=== PATIENT | male | born 1940 | race African-American/Black ===

== ENCOUNTER 2017-05-21 14:15 | Emergency (ER) | payer OTHER ==
[~2017-05-21] VITALS: Ht 175.3 cm; Wt 144.3 kg
[~2017-05-21 14:15] MED LIST: AMLODIPINE BESY10 MG PO; BYSTOLIC5 MG PO; KEFLEX500 MG PO; SIMVASTATIN20 MG PO; VALSARTAN-HCTZ1 EAC3 PO; VALTURNA 300-31 EACH PO
[2017-05-21 14:55] LABS: HEMATOCRIT 42.2 % (38.0-50.0); MCHC 36.5 G/DL (30.0-36.0); MCV 84.9 FL (86-99); MEAN PLAT.VOLUME 9.9 uM^3 (9.0-12.4); NRBC (%) 0.6 /100 WBC (0-0); PLATELET COUNT 241 K/uL (156-360); RBC DIS.WIDTH-CV 15.1 % (11.8-14.6); RBC DIS.WIDTH-SD 46.1 % (39-53); RED BLOOD COUNT 4.97 M/uL (4.00-5.50); WHITE BLOOD COUNT 3.5 K/uL (4.1-10.2)
[2017-05-21 15:07] LABS: CHLORIDE 101 mEq/L (99-109); POTASSIUM 3.8 mEq/L (3.7-5.4); SODIUM 138 mEq/L (136-147)
[2017-05-21 15:08] LABS: GLUCOSE 108 mg/dL (70-99)
[2017-05-21 15:10] LABS: ANION GAP 11 MEQ/L (2-14)
[2017-05-21 15:12] LABS: GFR ESTIMATE (CALCULATED) > 59 mL/min/
[2017-05-21 15:13] LABS: UREA NITROGEN (BUN) 16 mg/dL (9-23)
[2017-05-21 15:16] LABS: TROP-I INTERPRETATION NEGATIVE; TROPONIN-I 0.15 ng/mL (0.0-0.30)
[2017-05-21] MEDS ORDERED: PREDNISONE10 M1 PO (17:40)
[2017-05-21] MEDS ORDERED: VENTOLIN HFA18 GM IH (17:40)
[2017-05-21 17:58] VITALS: BP 143/84
== END 2017-05-21 18:00 | disposition home or self-care (01) ==
LOC: EME 14:15
DX: I11.0 Hypertensive heart disease with heart failure (principal); I50.9 Heart failure, unspecified; J44.9 Chronic obstructive pulmonary disease, unspecified; E78.5 Hyperlipidemia, unspecified; Z87.891 Personal history of nicotine dependence
CPT/HCPCS: 71020; 80048; 83735; 83880; 84484; 85027; 93005; 94640; 99281; 99284

== ENCOUNTER 2017-08-16 15:53 | Emergency (ER) | payer OTHER ==
[~2017-08-16] VITALS: Ht 176.5 cm; Wt 153.0 kg
[~2017-08-16 15:53] MED LIST changes: +PREDNISONE10 M1 PO; +VENTOLIN HFA18 GM IH
[2017-08-16 17:18] LABS: CHLORIDE 103 mEq/L (99-109); SODIUM 139 mEq/L (136-147)
[2017-08-16 17:20] LABS: GLUCOSE 106 mg/dL (70-99)
[2017-08-16 17:22] LABS: HEMATOCRIT 40.8 % (38.0-50.0); MCH 30.5 PG (29.0-34.0); MCHC 36.8 G/DL (30.0-36.0); MCV 82.9 FL (86-99); NRBC (%) 0.4 /100 WBC (0-0); PLATELET COUNT 261 K/uL (156-360); RBC DIS.WIDTH-CV 15.9 % (11.8-14.6); RBC DIS.WIDTH-SD 46.5 % (39-53); RED BLOOD COUNT 4.92 M/uL (4.00-5.50); WHITE BLOOD COUNT 4.6 K/uL (4.1-10.2)
[2017-08-16 17:24] LABS: GFR ESTIMATE (CALCULATED) > 59 mL/min/ (58.99-99999)
[2017-08-16 17:25] LABS: UREA NITROGEN (BUN) 12 mg/dL (9-23)
[2017-08-16 19:55] VITALS: BP 125/82
== END 2017-08-16 19:56 | disposition home or self-care (01) ==
LOC: EME 15:53 → RME 15:53
DX: R60.0 Localized edema (principal); S80.822A Blister (nonthermal), left lower leg, initial encounter; I11.0 Hypertensive heart disease with heart failure; I50.9 Heart failure, unspecified; E78.5 Hyperlipidemia, unspecified; Z87.891 Personal history of nicotine dependence
CPT/HCPCS: 71046; 80048; 85027; 99281; 99284

== ENCOUNTER 2017-09-22 10:55 | Inpatient (IN) | payer OTHER ==
[~2017-09-22] VITALS: Ht 175.3 cm; Wt 128.0 kg
[2017-09-22 11:43] LABS: CHLORIDE 101 mEq/L (99-109); POTASSIUM 3.8 mEq/L (3.7-5.4); SODIUM 138 mEq/L (136-147)
[2017-09-22 11:44] LABS: GLUCOSE 115 mg/dL (70-99)
[2017-09-22 11:48] LABS: CREATININE 1.1 mg/dL (0.6-1.3); GFR ESTIMATE (CALCULATED) > 59 mL/min/ (58.99-99999)
[2017-09-22 11:49] LABS: UREA NITROGEN (BUN) 25 mg/dL (9-23)
[2017-09-22 12:12] LABS: HEMATOCRIT 30.4 % (38.0-50.0); MCH 29.9 PG (29.0-34.0); MCHC 36.2 G/DL (30.0-36.0); MCV 82.6 FL (86-99); NRBC (%) 0.5 /100 WBC (0-0); PLATELET COUNT 230 K/uL (156-360); RBC DIS.WIDTH-CV 15.8 % (11.8-14.6); RBC DIS.WIDTH-SD 46.6 % (39-53); RED BLOOD COUNT 3.68 M/uL (4.00-5.50); WHITE BLOOD COUNT 6.1 K/uL (4.1-10.2)
[2017-09-22] MEDS ORDERED: ERGOCALCIF50000 UNIT PO (13:24)
[2017-09-22] MEDS ORDERED: FUROSEMIDE40 MG PO (13:24)
[2017-09-22 14:02] LABS: INTER. NORMALIZED RATIO 1.6
[2017-09-22 14:05] LABS: PTT 42.1 SEC (25-37)
[2017-09-22 17:30] VITALS: BP 112/68
[2017-09-22 18:18] LABS: HEMATOCRIT 29.9 % (38.0-50.0); HEMOGLOBIN 10.8 G/DL (12.5-16.6); MCV 83.3 FL (86-99)
[2017-09-22 20:00] VITALS: BP 100/69
[2017-09-23] VITALS (15 sets, daily range): BP systolic 60–110; BP diastolic 00–75
[2017-09-23 00:43] LABS: HEMATOCRIT 25.9 % (38.0-50.0); HEMOGLOBIN 9.8 G/DL (12.5-16.6)
[2017-09-23 05:32] LABS: HEMATOCRIT 26.3 % (38.0-50.0); HEMOGLOBIN 9.5 G/DL (12.5-16.6); MCH 29.8 PG (29.0-34.0); MCHC 36.1 G/DL (30.0-36.0); MCV 82.4 FL (86-99); NRBC (%) 0.6 /100 WBC (0-0); PLATELET COUNT 214 K/uL (156-360); RBC DIS.WIDTH-CV 15.6 % (11.8-14.6); RBC DIS.WIDTH-SD 46.1 % (39-53); RED BLOOD COUNT 3.19 M/uL (4.00-5.50); WHITE BLOOD COUNT 6.2 K/uL (4.1-10.2)
[2017-09-23 05:55] LABS: ALBUMIN 2.2 G/DL (3.2-4.8); ALKALINE PHOSPHATASE 70 IU/L (3-129); ALT (GPT) 18 IU/L (3-49); AST (GOT) 33 IU/L (2-34); TOTAL BILIRUBIN 3.7 MG/DL (0.0-1.0); TOTAL PROTEIN 5.1 G/DL (6.4-8.3)
[2017-09-23 05:56] LABS: ALBUMIN 2.2 G/DL (3.2-4.8); ALKALINE PHOSPHATASE 74 IU/L (3-129); ALT (GPT) 18 IU/L (3-49); AST (GOT) 33 IU/L (2-34); CHLORIDE 102 MEQ/L (99-109); GFR ESTIMATE (CALCULATED) > 59 mL/min/ (58.99-99999); GLUCOSE 118 mg/dL (70-99); POTASSIUM 4.2 MEQ/L (3.7-5.4); SODIUM 139 MEQ/L (136-147); TOTAL BILIRUBIN 3.9 MG/DL (0.0-1.0); UREA NITROGEN (BUN) 23 mg/dL (9-23)
[2017-09-23 11:03] LABS: HEMATOCRIT 25.8 % (38.0-50.0); HEMOGLOBIN 9.6 G/DL (12.5-16.6); MCV 83.5 FL (86-99)
[2017-09-23 15:03] LABS: INTER. NORMALIZED RATIO 1.5
[2017-09-23 15:06] LABS: PTT 42.3 SEC (25-37)
[2017-09-23 15:22] LABS: HEMATOCRIT 23.9 % (38.0-50.0); MCH 31.1 PG (29.0-34.0); MCHC 37.7 G/DL (30.0-36.0); MCV 82.7 FL (86-99); NRBC (%) 1.3 /100 WBC (0-0); PLATELET COUNT 202 K/uL (156-360); RBC DIS.WIDTH-CV 15.6 % (11.8-14.6); RBC DIS.WIDTH-SD 46.2 % (39-53); RED BLOOD COUNT 2.89 M/uL (4.00-5.50); WHITE BLOOD COUNT 5.5 K/uL (4.1-10.2)
[2017-09-23 15:24] LABS: CHLORIDE 105 mEq/L (99-109); POTASSIUM 3.9 mEq/L (3.7-5.4); SODIUM 137 mEq/L (136-147)
[2017-09-23 15:25] LABS: MAGNESIUM 1.7 mg/dL (1.3-2.7)
[2017-09-23 15:26] LABS: GLUCOSE 119 mg/dL (70-99)
[2017-09-23 15:30] LABS: CREATININE 0.8 mg/dL (0.6-1.3); GFR ESTIMATE (CALCULATED) > 59 mL/min/ (58.99-99999)
[2017-09-23 15:31] LABS: UREA NITROGEN (BUN) 21 mg/dL (9-23)
[2017-09-24 04:08] VITALS: BP 106/66
[2017-09-24 05:57] LABS: HEMATOCRIT 27.5 % (38.0-50.0); MCHC 36.4 G/DL (30.0-36.0); MCV 82.6 FL (86-99); NRBC (%) 1.9 /100 WBC (0-0); PLATELET COUNT 192 K/uL (156-360); RBC DIS.WIDTH-CV 15.4 % (11.8-14.6); RED BLOOD COUNT 3.33 M/uL (4.00-5.50); WHITE BLOOD COUNT 5.8 K/uL (4.1-10.2)
[2017-09-24 06:20] LABS: CHLORIDE 106 MEQ/L (99-109); CREATININE 0.8 MG/DL (0.6-1.3); GFR ESTIMATE (CALCULATED) > 59 mL/min/ (58.99-99999); GLUCOSE 99 mg/dL (70-99); MAGNESIUM 1.7 mg/dl (1.3-2.7); POTASSIUM 3.9 MEQ/L (3.7-5.4); SODIUM 139 MEQ/L (136-147); UREA NITROGEN (BUN) 16 mg/dL (9-23)
[2017-09-24 07:50] VITALS: BP 110/69
[2017-09-24 12:20] VITALS: BP 119/76
[2017-09-24 16:09] VITALS: BP 106/71
[2017-09-24 20:30] VITALS: BP 100/59
[2017-09-25] VITALS (7 sets, daily range): BP systolic 96–114; BP diastolic 54–76
[2017-09-25 05:38] LABS: HEMOGLOBIN 10.3 G/DL (12.5-16.6); MCH 30.9 PG (29.0-34.0); MCHC 36.8 G/DL (30.0-36.0); MCV 84.1 FL (86-99); NRBC (%) 1.8 /100 WBC (0-0); PLATELET COUNT 206 K/uL (156-360); RBC DIS.WIDTH-CV 15.9 % (11.8-14.6); RED BLOOD COUNT 3.33 M/uL (4.00-5.50); WHITE BLOOD COUNT 5.4 K/uL (4.1-10.2)
[2017-09-25 06:02] LABS: ALBUMIN 2.5 G/DL (3.2-4.8); ALKALINE PHOSPHATASE 71 IU/L (3-129); ALT (GPT) 18 IU/L (3-49); AST (GOT) 33 IU/L (2-34); CHLORIDE 106 MEQ/L (99-109); CREATININE 0.7 MG/DL (0.6-1.3); GFR ESTIMATE (CALCULATED) > 59 mL/min/ (58.99-99999); GLUCOSE 86 mg/dL (70-99); MAGNESIUM 1.7 mg/dl (1.3-2.7); POTASSIUM 3.8 MEQ/L (3.7-5.4); SODIUM 137 MEQ/L (136-147); TOTAL BILIRUBIN 3.8 MG/DL (0.0-1.0); TOTAL PROTEIN 5.5 G/DL (6.4-8.3); UREA NITROGEN (BUN) 12 mg/dL (9-23)
[2017-09-26 04:24] VITALS: BP 106/56
[2017-09-26 05:40] LABS: HEMATOCRIT 26.6 % (38.0-50.0); HEMOGLOBIN 9.8 G/DL (12.5-16.6); MCH 30.7 PG (29.0-34.0); MCHC 36.8 G/DL (30.0-36.0); MCV 83.4 FL (86-99); NRBC (%) 1.6 /100 WBC (0-0); PLATELET COUNT 215 K/uL (156-360); RBC DIS.WIDTH-CV 15.9 % (11.8-14.6); RBC DIS.WIDTH-SD 47.4 % (39-53); RED BLOOD COUNT 3.19 M/uL (4.00-5.50); WHITE BLOOD COUNT 4.9 K/uL (4.1-10.2)
[2017-09-26 05:51] LABS: INTER. NORMALIZED RATIO 1.5
[2017-09-26 05:54] LABS: PTT 40.1 SEC (25-37)
[2017-09-26 06:01] LABS: ALBUMIN 2.5 G/DL (3.2-4.8); ALKALINE PHOSPHATASE 74 IU/L (3-129); ALT (GPT) 17 IU/L (3-49); AST (GOT) 31 IU/L (2-34); CHLORIDE 105 MEQ/L (99-109); CREATININE 0.8 MG/DL (0.6-1.3); GFR ESTIMATE (CALCULATED) > 59 mL/min/ (58.99-99999); GLUCOSE 89 mg/dL (70-99); POTASSIUM 3.8 MEQ/L (3.7-5.4); SODIUM 138 MEQ/L (136-147); TOTAL BILIRUBIN 3.6 MG/DL (0.0-1.0); TOTAL PROTEIN 5.8 G/DL (6.4-8.3); UREA NITROGEN (BUN) 13 mg/dL (9-23)
[2017-09-26] MEDS ORDERED: PANTOPRAZOLE SO40 MG PO (08:13)
[2017-09-26 08:19] VITALS: BP 94/53
[2017-09-26 11:12] VITALS: BP 97/60
== END 2017-09-26 15:18 | disposition home or self-care (01) | DRG 378 ==
LOC: EME 10:55 → EDOF 13:56 → 4EAST 13:56 → ENRESERV 14:01 → EDOF 14:10 → ENRESERV 14:38 → 4EAST 16:20 → ENPENDDIS 09-26 → 4EAST 09-26 15:18
PROVIDERS: Emergency Medicine; Hospitalist; Internal Medicine; Internal Medicine Gastroenterology
PROC: 30233N1 Transfusion of Nonautologous Red Blood Cells into Peripheral Vein, Percutaneous Approach (ICD-10-PCS; principal; 2017-09-23)
DX: K92.1 Melena (principal); L97.221 Non-pressure chronic ulcer of left calf limited to breakdown of skin; D68.4 Acquired coagulation factor deficiency; D62 Acute posthemorrhagic anemia; Z68.41 Body mass index [BMI] 40.0-44.9, adult; I50.22 Chronic systolic (congestive) heart failure; R17 Unspecified jaundice; I11.0 Hypertensive heart disease with heart failure; E78.5 Hyperlipidemia, unspecified; E66.01 Morbid (severe) obesity due to excess calories; I87.2 Venous insufficiency (chronic) (peripheral); I87.8 Other specified disorders of veins; I89.0 Lymphedema, not elsewhere classified; I95.9 Hypotension, unspecified; Z87.891 Personal history of nicotine dependence; Z23 Encounter for immunization; Z79.51 Long term (current) use of inhaled steroids; Z82.49 Family history of ischemic heart disease and other diseases of the circulatory system
CPT/HCPCS: 76705; 80048; 80048 91; 80053; 80076; 83735; 85014; 85018; 85027; 85610; 85730; 86850; 86900; 86901; 86920; 90686; 93005; 93306; 99202; 99281; 99285; A6260; C9113; J3430; J7030; J7040; P9016; P9045; P9047

== ENCOUNTER 2017-10-10 11:43 | Emergency (ER) | payer OTHER ==
[~2017-10-10] VITALS: Ht 175.3 cm; Wt 153.2 kg
[~2017-10-10 11:43] MED LIST changes: +ERGOCALCIF50000 UNIT PO; +FUROSEMIDE40 MG PO; +PANTOPRAZOLE SO40 MG PO
[2017-10-10 12:47] LABS: HEMATOCRIT 27.6 % (38.0-50.0); HEMOGLOBIN 10.1 G/DL (12.5-16.6); MCHC 36.6 G/DL (30.0-36.0); MCV 81.9 FL (86-99); PLATELET COUNT 275 K/uL (156-360); RBC DIS.WIDTH-CV 14.8 % (11.8-14.6); RBC DIS.WIDTH-SD 43.3 % (39-53); RED BLOOD COUNT 3.37 M/uL (4.00-5.50)
[2017-10-10 12:53] LABS: CHLORIDE 100 mEq/L (99-109); POTASSIUM 4.3 mEq/L (3.7-5.4); SODIUM 132 mEq/L (136-147)
[2017-10-10 12:55] LABS: GLUCOSE 112 mg/dL (70-99)
[2017-10-10 12:58] LABS: GFR ESTIMATE (CALCULATED) > 59 mL/min/ (58.99-99999)
[2017-10-10 12:59] LABS: UREA NITROGEN (BUN) 11 mg/dL (9-23)
[2017-10-10 15:41] LABS: TROP-I INTERPRETATION NEGATIVE; TROPONIN-I 0.13 ng/mL (0.0-0.30)
[2017-10-10 15:59] LABS: APPEARANCE SL.HAZY ((CLEAR)); BILIRUBIN NEGATIVE; BLOOD SMALL; COLOR AMBER ((YELLOW)); GLUCOSE (STRIP) NEGATIVE; KETONES NEGATIVE; LEUKOCYTES SMALL; NITRITE NEGATIVE; PROTEIN (STRIP) 100; SPECIFIC GRAVITY 1.012 (1.000-1.030)
[2017-10-10 16:08] LABS: BACTERIA RARE /HPF; CALCIUM OXALATE CRYSTALS 2+ /HPF; EPITHELIAL CELLS RARE /HPF; MUCUS TRACE /LPF; RED BLOOD CELLS 0-5 /HPF (0-5); UCUL ADDED? YES; WHITE BLOOD CELLS 15-20 /HPF (0-5)
[2017-10-10] MEDS ORDERED: ELIQUIS5 M1 PO (17:06)
[2017-10-10 17:10] VITALS: BP 113/78
[2017-10-10] MEDS ORDERED: LORTAB 5-325 M1 EACH PO (17:19)
== END 2017-10-10 17:40 | disposition home or self-care (01) ==
LOC: EME 11:43
PROVIDERS: Physician Assistant Medical
DX: I48.91 Unspecified atrial fibrillation (principal); I48.92 Unspecified atrial flutter; R06.02 Shortness of breath; I11.0 Hypertensive heart disease with heart failure; I50.9 Heart failure, unspecified; E78.5 Hyperlipidemia, unspecified; Z87.891 Personal history of nicotine dependence
CPT/HCPCS: 71046; 71275; 80048; 81003; 83880; 84484; 85027; 87077; 87086; 87186; 93005; 99281; 99284

== ENCOUNTER 2017-10-19 10:32 | Inpatient (IN) | payer OTHER ==
[~2017-10-19] VITALS: Ht 175.3 cm; Wt 116.0 kg
[~2017-10-19 10:32] MED LIST changes: +ELIQUIS5 M1 PO; +LORTAB 5-325 M1 EACH PO
[2017-10-19 11:50] LABS: BASE EXCESS -2.5 mEq/L (-3 to +3); BICARBONATE 21.4 mEq/L (22-26); CARBOXY HGB 2.8 % (0-5); PCO2 33 mm Hg (35-45); PO2 66 mm Hg (80-100); pH 7.42 (7.35-7.45)
[2017-10-19 11:51] LABS: COMMENTS - BLOOD GASES A+C+; DEVICE RA; SITE RR; TOTAL RESP RATE 23 resp/min
[2017-10-19 12:00] LABS: BASOPHIL (%) 0.1 % (0-1); EOSINOPHIL (%) 0 % (0-5); HEMATOCRIT 28.1 % (38.0-50.0); HEMOGLOBIN 10.3 G/DL (12.5-16.6); IMMATURE GRANULOCYTE (%) 0.6 % (0.0-0.7); LYMPHOCYTE (%) 3.8 % (15-42); LYMPHOCYTE COUNT 0.5 K/uL (1.0-2.8); MCH 29.1 PG (29.0-34.0); MCHC 36.7 G/DL (30.0-36.0); MCV 79.4 FL (86-99); MONOCYTE (%) 9.1 % (3-12); MONOCYTE COUNT 1.1 K/uL (0-0.8); NEUTROPHIL (%) 86.4 % (45-76); NEUTROPHIL COUNT 10.6 K/uL (1.8-6.4); NRBC (%) 5.5 /100 WBC (0-0); PLATELET COUNT 286 K/uL (156-360); RBC DIS.WIDTH-CV 14.8 % (11.8-14.6); RBC DIS.WIDTH-SD 42.1 % (39-53); RED BLOOD COUNT 3.54 M/uL (4.00-5.50); WHITE BLOOD COUNT 12.3 K/uL (4.1-10.2)
[2017-10-19 12:19] LABS: INTER. NORMALIZED RATIO 8.7
[2017-10-19 12:21] LABS: ALBUMIN 2.7 g/dL (3.2-4.8); CHLORIDE 97 mEq/L (99-109); POTASSIUM 5.8 mEq/L (3.7-5.4); SODIUM 128 mEq/L (136-147)
[2017-10-19 12:22] LABS: MAGNESIUM 2.4 mg/dL (1.3-2.7); TROP-I INTERPRETATION NEGATIVE; TROPONIN-I 0.12 ng/mL (0.0-0.30)
[2017-10-19 12:23] LABS: GLUCOSE 130 mg/dL (70-99)
[2017-10-19 12:24] LABS: TOTAL PROTEIN 7.2 g/dL (6.4-8.3)
[2017-10-19 12:25] LABS: TOTAL BILIRUBIN 6.5 mg/dL (0.0-1.0)
[2017-10-19 12:27] LABS: ALKALINE PHOSPHATASE 125 IU/L (3-129); CREATININE 1.6 mg/dL (0.6-1.3); GFR ESTIMATE (CALCULATED) 55 mL/min/ (58.99-99999)
[2017-10-19 12:28] LABS: UREA NITROGEN (BUN) 28 mg/dL (9-23)
[2017-10-19 12:29] LABS: AST (GOT) 58 IU/L (2-34)
[2017-10-19 12:30] LABS: ALT (GPT) 22 IU/L (3-49)
[2017-10-19 13:07] LABS: APPEARANCE CLOUDY ((CLEAR)); BILIRUBIN SMALL; BLOOD MODERATE; COLOR AMBER ((YELLOW)); GLUCOSE (STRIP) NEGATIVE; KETONES NEGATIVE; LEUKOCYTES NEGATIVE; NITRITE NEGATIVE; PROTEIN (STRIP) 100; SPECIFIC GRAVITY 1.026 (1.000-1.030)
[2017-10-19] MEDS ORDERED: PROTONIX40 MG PO (13:12)
[2017-10-19] MEDS ORDERED: ELIQUIS5 MG PO (13:12)
[2017-10-19] MEDS ORDERED: CEPHALEXIN500 MG PO (13:13)
[2017-10-19] MEDS ORDERED: FLOVENT 11120 INHALA IH (13:13)
[2017-10-19 13:26] LABS: COARSE GRANULAR CASTS 0-5 /LPF; EPITHELIAL CELLS NONE SEEN /HPF; MUCUS NONE SEEN /LPF; RED BLOOD CELLS RARE /HPF (0-5); UCUL ADDED? NO; WHITE BLOOD CELLS NONE SEEN /HPF (0-5)
[2017-10-19 13:27] LABS: BACTERIA 1+ /HPF
[2017-10-19 18:39] LABS: CHLORIDE 98 mEq/L (99-109); POTASSIUM 4.6 mEq/L (3.7-5.4); SODIUM 129 mEq/L (136-147)
[2017-10-19 18:41] LABS: GLUCOSE 122 mg/dL (70-99)
[2017-10-19 18:44] LABS: CREATININE 1.5 mg/dL (0.6-1.3); GFR ESTIMATE (CALCULATED) 59 mL/min/ (58.99-99999)
[2017-10-19 18:45] LABS: UREA NITROGEN (BUN) 27 mg/dL (9-23)
[2017-10-19 19:33] VITALS: BP 92/61
[2017-10-19 21:11] VITALS: BP 92/60
[2017-10-19 22:37] VITALS: BP 94/60
[2017-10-20] VITALS (8 sets, daily range): BP systolic 80–100; BP diastolic 49–59
[2017-10-20 06:08] LABS: BASOPHIL (%) 0.3 % (0-1); EOSINOPHIL (%) 0.1 % (0-5); HEMATOCRIT 27.2 % (38.0-50.0); HEMOGLOBIN 9.8 G/DL (12.5-16.6); IMMATURE GRANULOCYTE (%) 0.6 % (0.0-0.7); LYMPHOCYTE (%) 4.1 % (15-42); LYMPHOCYTE COUNT 0.5 K/uL (1.0-2.8); MCH 28.7 PG (29.0-34.0); MCV 79.5 FL (86-99); MONOCYTE (%) 11.6 % (3-12); MONOCYTE COUNT 1.4 K/uL (0-0.8); NEUTROPHIL (%) 83.3 % (45-76); NRBC (%) 5.9 /100 WBC (0-0); PLATELET COUNT 268 K/uL (156-360); RBC DIS.WIDTH-SD 42.8 % (39-53); RED BLOOD COUNT 3.42 M/uL (4.00-5.50)
[2017-10-20 06:32] LABS: ALBUMIN 2.6 G/DL (3.2-4.8); ALKALINE PHOSPHATASE 96 IU/L (3-129); ALT (GPT) 18 IU/L (3-49); AST (GOT) 40 IU/L (2-34); CHLORIDE 97 MEQ/L (99-109); CREATININE 1.4 MG/DL (0.6-1.3); GFR ESTIMATE (CALCULATED) > 59 mL/min/ (58.99-99999); GLUCOSE 120 mg/dL (70-99); POTASSIUM 4.4 MEQ/L (3.7-5.4); SODIUM 129 MEQ/L (136-147); TOTAL BILIRUBIN 6.4 MG/DL (0.0-1.0); TOTAL PROTEIN 6.5 G/DL (6.4-8.3); UREA NITROGEN (BUN) 26 mg/dL (9-23)
[2017-10-20 14:31] LABS: INTER. NORMALIZED RATIO 5.1
[2017-10-21] VITALS (11 sets, daily range): BP systolic 85–109; BP diastolic 52–73
[2017-10-21 05:51] LABS: CHLORIDE 99 MEQ/L (99-109); CREATININE 1.4 MG/DL (0.6-1.3); GFR ESTIMATE (CALCULATED) > 59 mL/min/ (58.99-99999); GLUCOSE 117 mg/dL (70-99); POTASSIUM 3.9 MEQ/L (3.7-5.4); SODIUM 131 MEQ/L (136-147); UREA NITROGEN (BUN) 28 mg/dL (9-23)
[2017-10-21 09:10] LABS: INTER. NORMALIZED RATIO 3.9
[2017-10-22] VITALS (15 sets, daily range): BP systolic 72–104; BP diastolic 48–75
[2017-10-22 01:11] LABS: APPEARANCE SL.HAZY ((CLEAR)); BILIRUBIN NEGATIVE; BLOOD LARGE; COLOR YELLOW ((YELLOW)); GLUCOSE (STRIP) NEGATIVE; KETONES NEGATIVE; LEUKOCYTES MODERATE; NITRITE NEGATIVE; PROTEIN (STRIP) NEGATIVE; SPECIFIC GRAVITY 1.005 (1.000-1.030); UROBILINOGEN 0.2 MG/DL (0.2-1.0)
[2017-10-22 01:21] LABS: BACTERIA RARE /HPF; EPITHELIAL CELLS RARE /HPF; HYALINE CASTS 0-5 /LPF; MUCUS TRACE /LPF; RED BLOOD CELLS TNTC /HPF (0-5); UCUL ADDED? YES
[2017-10-22 05:18] LABS: INTER. NORMALIZED RATIO 3.1
[2017-10-22 05:45] LABS: ALBUMIN 2.3 G/DL (3.2-4.8); ALKALINE PHOSPHATASE 103 IU/L (3-129); ALT (GPT) 16 IU/L (3-49); AST (GOT) 37 IU/L (2-34); CHLORIDE 98 MEQ/L (99-109); CREATININE 1.4 MG/DL (0.6-1.3); GFR ESTIMATE (CALCULATED) > 59 mL/min/ (58.99-99999); GLUCOSE 108 mg/dL (70-99); MAGNESIUM 2.5 mg/dl (1.3-2.7); PHOSPHORUS 3.2 mg/dL (2.5-4.9); POTASSIUM 3.6 MEQ/L (3.7-5.4); SODIUM 133 MEQ/L (136-147); TOTAL BILIRUBIN 6.8 MG/DL (0.0-1.0); TOTAL PROTEIN 6.1 G/DL (6.4-8.3); UREA NITROGEN (BUN) 28 mg/dL (9-23)
[2017-10-22 20:18] LABS: CHLORIDE 100 MEQ/L (99-109); POTASSIUM 3.3 MEQ/L (3.7-5.4); SODIUM 132 MEQ/L (136-147)
[2017-10-22 20:23] LABS: CREATININE 1.4 MG/DL (0.6-1.3); GFR ESTIMATE (CALCULATED) > 59 mL/min/ (58.99-99999); GLUCOSE 110 mg/dL (70-99); UREA NITROGEN (BUN) 27 mg/dL (9-23)
[2017-10-23] VITALS (17 sets, daily range): BP systolic 83–128; BP diastolic 51–74
[2017-10-23 07:20] LABS: CHLORIDE 98 MEQ/L (99-109); CREATININE 1.4 MG/DL (0.6-1.3); GFR ESTIMATE (CALCULATED) > 59 mL/min/ (58.99-99999); GLUCOSE 111 mg/dL (70-99); POTASSIUM 3.6 MEQ/L (3.7-5.4); SODIUM 131 MEQ/L (136-147); UREA NITROGEN (BUN) 26 mg/dL (9-23)
[2017-10-23 12:36] LABS: HEMATOCRIT 28.9 % (38.0-50.0); HEMOGLOBIN 10.4 G/DL (12.5-16.6); MCV 77.7 FL (86-99); NRBC (%) 5.4 /100 WBC (0-0); PLATELET COUNT 244 K/uL (156-360); RBC DIS.WIDTH-CV 15.4 % (11.8-14.6); RBC DIS.WIDTH-SD 41.8 % (39-53); RED BLOOD COUNT 3.72 M/uL (4.00-5.50); WHITE BLOOD COUNT 7.9 K/uL (4.1-10.2)
[2017-10-23 17:28] LABS: CHLORIDE 100 MEQ/L (99-109); CREATININE 1.4 MG/DL (0.6-1.3); GFR ESTIMATE (CALCULATED) > 59 mL/min/ (58.99-99999); GLUCOSE 120 mg/dL (70-99); POTASSIUM 3.1 MEQ/L (3.7-5.4); SODIUM 137 MEQ/L (136-147); UREA NITROGEN (BUN) 26 mg/dL (9-23)
[2017-10-24] VITALS (18 sets, daily range): BP systolic 86–132; BP diastolic 51–89
[2017-10-24 00:38] LABS: CHLORIDE 101 mEq/L (99-109); POTASSIUM 3.1 mEq/L (3.7-5.4); SODIUM 138 mEq/L (136-147)
[2017-10-24 00:40] LABS: GLUCOSE 132 mg/dL (70-99)
[2017-10-24 00:44] LABS: CREATININE 1.3 mg/dL (0.6-1.3); GFR ESTIMATE (CALCULATED) > 59 mL/min/ (58.99-99999)
[2017-10-24 00:45] LABS: UREA NITROGEN (BUN) 27 mg/dL (9-23)
[2017-10-24 00:46] LABS: PHOSPHORUS 2.1 mg/dL (2.5-4.9)
[2017-10-24 07:48] LABS: CHLORIDE 98 MEQ/L (99-109); CREATININE 1.3 MG/DL (0.6-1.3); GFR ESTIMATE (CALCULATED) > 59 mL/min/ (58.99-99999); GLUCOSE 122 mg/dL (70-99); POTASSIUM 3.5 MEQ/L (3.7-5.4); SODIUM 139 MEQ/L (136-147); UREA NITROGEN (BUN) 25 mg/dL (9-23)
[2017-10-24 11:23] LABS: INTER. NORMALIZED RATIO 2.3
[2017-10-24 16:41] LABS: CHLORIDE 96 MEQ/L (99-109); CREATININE 1.3 MG/DL (0.6-1.3); GFR ESTIMATE (CALCULATED) > 59 mL/min/ (58.99-99999); GLUCOSE 160 mg/dL (70-99); POTASSIUM 3.3 MEQ/L (3.7-5.4); SODIUM 138 MEQ/L (136-147); UREA NITROGEN (BUN) 23 mg/dL (9-23)
[2017-10-25] VITALS (21 sets, daily range): BP systolic 80–129; BP diastolic 50–91
[2017-10-25 04:49] LABS: HEMATOCRIT 29.4 % (38.0-50.0); HEMOGLOBIN 10.9 G/DL (12.5-16.6); MCH 28.6 PG (29.0-34.0); MCHC 37.1 G/DL (30.0-36.0); MCV 77.2 FL (86-99); NRBC (%) 3.7 /100 WBC (0-0); PLATELET COUNT 267 K/uL (156-360); RBC DIS.WIDTH-CV 15.5 % (11.8-14.6); RBC DIS.WIDTH-SD 41.6 % (39-53); RED BLOOD COUNT 3.81 M/uL (4.00-5.50); WHITE BLOOD COUNT 7.6 K/uL (4.1-10.2)
[2017-10-25 04:55] LABS: INTER. NORMALIZED RATIO 2.2
[2017-10-25 04:58] LABS: PTT 55.2 SEC (25-37)
[2017-10-25 05:00] LABS: ALBUMIN 2.5 g/dL (3.2-4.8); CHLORIDE 98 mEq/L (99-109); POTASSIUM 3.7 mEq/L (3.7-5.4); SODIUM 142 mEq/L (136-147)
[2017-10-25 05:02] LABS: GLUCOSE 132 mg/dL (70-99); TOTAL PROTEIN 6.8 g/dL (6.4-8.3)
[2017-10-25 05:04] LABS: TOTAL BILIRUBIN 6.1 mg/dL (0.0-1.0)
[2017-10-25 05:06] LABS: ALKALINE PHOSPHATASE 142 IU/L (3-129); CREATININE 1.3 mg/dL (0.6-1.3); GFR ESTIMATE (CALCULATED) > 59 mL/min/ (58.99-99999)
[2017-10-25 05:07] LABS: AST (GOT) 76 IU/L (2-34); UREA NITROGEN (BUN) 23 mg/dL (9-23)
[2017-10-25 05:09] LABS: ALT (GPT) 30 IU/L (3-49)
[2017-10-25 14:14] LABS: BASE EXCESS 15.2 mEq/L (-3 to +3); BICARBONATE 38.4 mEq/L (22-26); CARBOXY HGB 3.1 % (0-5); METHEMOGLOBIN 1.4 % (0-1.5); PCO2 40 mm Hg (35-45); PO2 55 mm Hg (80-100); pH 7.59 (7.35-7.45)
[2017-10-25 14:16] LABS: COMMENTS - BLOOD GASES +C; FI02 21 %; SITE LR +A; TOTAL RESP RATE 24 resp/min
[2017-10-26] VITALS (15 sets, daily range): BP systolic 81–131; BP diastolic 49–73
[2017-10-26 05:29] LABS: CHLORIDE 100 mEq/L (99-109); POTASSIUM 3.5 mEq/L (3.7-5.4); SODIUM 144 mEq/L (136-147)
[2017-10-26 05:30] LABS: GLUCOSE 110 mg/dL (70-99)
[2017-10-26 05:34] LABS: CREATININE 1.1 mg/dL (0.6-1.3); GFR ESTIMATE (CALCULATED) > 59 mL/min/ (58.99-99999)
[2017-10-26 05:35] LABS: UREA NITROGEN (BUN) 21 mg/dL (9-23)
[2017-10-26 06:45] LABS: IRON 38 MCG/DL (35-150); TRANSFERRIN (TIBC) 185.5 mg/dL (215-380); TRANSFERRIN SATUR. 20 % (20-55)
[2017-10-27 00:15] VITALS: BP 96/62
[2017-10-27 00:32] LABS: ALBUMIN 2.3 g/dL (3.2-4.8); CHLORIDE 99 mEq/L (99-109); POTASSIUM 3.3 mEq/L (3.7-5.4); SODIUM 143 mEq/L (136-147)
[2017-10-27 00:33] LABS: MAGNESIUM 2.2 mg/dL (1.3-2.7)
[2017-10-27 00:35] LABS: GLUCOSE 126 mg/dL (70-99); TOTAL PROTEIN 6.7 g/dL (6.4-8.3)
[2017-10-27 00:37] LABS: TOTAL BILIRUBIN 5.5 mg/dL (0.0-1.0)
[2017-10-27 00:39] LABS: GFR ESTIMATE (CALCULATED) > 59 mL/min/ (58.99-99999)
[2017-10-27 00:40] LABS: AST (GOT) 87 IU/L (2-34)
[2017-10-27 00:41] LABS: TROP-I INTERPRETATION INDETERMINATE; TROPONIN-I 0.43 ng/mL (0.0-0.30)
[2017-10-27 00:50] LABS: ALKALINE PHOSPHATASE 134 IU/L (3-129)
[2017-10-27 00:51] LABS: UREA NITROGEN (BUN) 19 mg/dL (9-23)
[2017-10-27 00:52] LABS: DIGOXIN 0.7 ng/mL (0.8-2.0)
[2017-10-27 00:53] LABS: ALT (GPT) 34 IU/L (3-49)
[2017-10-27 04:15] VITALS: BP 102/63
[2017-10-27 05:51] LABS: HEMATOCRIT 30.1 % (38.0-50.0); HEMOGLOBIN 10.7 G/DL (12.5-16.6); MCH 28.3 PG (29.0-34.0); MCHC 35.5 G/DL (30.0-36.0); MCV 79.6 FL (86-99); NRBC (%) 2.2 /100 WBC (0-0); PLATELET COUNT 262 K/uL (156-360); RBC DIS.WIDTH-CV 16.4 % (11.8-14.6); RBC DIS.WIDTH-SD 44.8 % (39-53); RED BLOOD COUNT 3.78 M/uL (4.00-5.50); WHITE BLOOD COUNT 7.2 K/uL (4.1-10.2)
[2017-10-27 06:20] LABS: BASOPHIL (%) 0.4 % (0-1); EOSINOPHIL (%) 1.1 % (0-5); EOSINOPHIL COUNT 0.1 K/uL (0-0.3); IMMATURE GRANULOCYTE (%) 0.6 % (0.0-0.7); LYMPHOCYTE COUNT 0.9 K/uL (1.0-2.8); MONOCYTE (%) 9.6 % (3-12); MONOCYTE COUNT 0.7 K/uL (0-0.8); NEUTROPHIL (%) 75.3 % (45-76); NEUTROPHIL COUNT 5.4 K/uL (1.8-6.4)
[2017-10-27 06:27] LABS: CHLORIDE 99 MEQ/L (99-109); GFR ESTIMATE (CALCULATED) > 59 mL/min/ (58.99-99999); GLUCOSE 111 mg/dL (70-99); POTASSIUM 3.4 MEQ/L (3.7-5.4); SODIUM 142 MEQ/L (136-147); UREA NITROGEN (BUN) 19 mg/dL (9-23)
[2017-10-27 06:50] VITALS: BP 103/58
[2017-10-27 09:41] LABS: BASE EXCESS 15.8 mEq/L (-3 to +3); BICARBONATE 40.2 mEq/L (22-26); CARBOXY HGB 2.7 % (0-5); METHEMOGLOBIN 1.6 % (0-1.5); pH 7.54 (7.35-7.45)
[2017-10-27 09:42] LABS: PCO2 47 mm Hg (35-45); PO2 76 mm Hg (80-100)
[2017-10-27 09:43] LABS: COMMENTS - BLOOD GASES A+C+; DEVICE NC; O2 FLOW 1 L/MIN; SITE LR
[2017-10-27 10:56] VITALS: BP 94/53
[2017-10-27 15:20] VITALS: BP 99/57
[2017-10-27 19:47] VITALS: BP 109/66
[2017-10-28] VITALS: BP 116/58
[2017-10-28 04:07] VITALS: BP 117/65
[2017-10-28 05:38] LABS: HEMATOCRIT 30.8 % (38.0-50.0); HEMOGLOBIN 10.7 G/DL (12.5-16.6); MCH 27.9 PG (29.0-34.0); MCHC 34.7 G/DL (30.0-36.0); MCV 80.4 FL (86-99); NRBC (%) 1.5 /100 WBC (0-0); PLATELET COUNT 290 K/uL (156-360); RBC DIS.WIDTH-CV 17.1 % (11.8-14.6); RBC DIS.WIDTH-SD 46.7 % (39-53); RED BLOOD COUNT 3.83 M/uL (4.00-5.50); WHITE BLOOD COUNT 7.3 K/uL (4.1-10.2)
[2017-10-28 05:48] LABS: INTER. NORMALIZED RATIO 1.7
[2017-10-28 06:08] LABS: ALBUMIN 2.3 G/DL (3.2-4.8); ALKALINE PHOSPHATASE 125 IU/L (3-129); CHLORIDE 102 MEQ/L (99-109); CREATININE 0.9 MG/DL (0.6-1.3); GFR ESTIMATE (CALCULATED) > 59 mL/min/ (58.99-99999); GLUCOSE 108 mg/dL (70-99); POTASSIUM 3.7 MEQ/L (3.7-5.4); SODIUM 144 MEQ/L (136-147); TOTAL PROTEIN 6.4 G/DL (6.4-8.3); UREA NITROGEN (BUN) 17 mg/dL (9-23)
[2017-10-28 06:18] LABS: ALT (GPT) 31 IU/L (3-49); AST (GOT) 74 IU/L (2-34); BASOPHIL (%) 0.4 % (0-1); EOSINOPHIL (%) 0.7 % (0-5); EOSINOPHIL COUNT 0.1 K/uL (0-0.3); IMMATURE GRANULOCYTE (%) 0.7 % (0.0-0.7); LYMPHOCYTE (%) 16.1 % (15-42); LYMPHOCYTE COUNT 1.2 K/uL (1.0-2.8); MONOCYTE (%) 8.7 % (3-12); MONOCYTE COUNT 0.6 K/uL (0-0.8); NEUTROPHIL (%) 73.4 % (45-76); NEUTROPHIL COUNT 5.4 K/uL (1.8-6.4); TOTAL BILIRUBIN 5.3 MG/DL (0.0-1.0)
[2017-10-28 06:57] VITALS: BP 106/54
[2017-10-28 11:20] VITALS: BP 119/76
[2017-10-28 15:37] VITALS: BP 110/71
[2017-10-28 19:57] VITALS: BP 102/62
[2017-10-29] VITALS (7 sets, daily range): BP systolic 90–111; BP diastolic 55–76
[2017-10-29 07:28] LABS: INTER. NORMALIZED RATIO 1.7
[2017-10-29 07:46] LABS: BASOPHIL (%) 0.5 % (0-1); EOSINOPHIL (%) 0.5 % (0-5); HEMATOCRIT 31.6 % (38.0-50.0); HEMOGLOBIN 10.8 G/DL (12.5-16.6); IMMATURE GRANULOCYTE (%) 0.5 % (0.0-0.7); LYMPHOCYTE (%) 13.9 % (15-42); LYMPHOCYTE COUNT 1.1 K/uL (1.0-2.8); MCHC 34.2 G/DL (30.0-36.0); MCV 81.9 FL (86-99); MONOCYTE (%) 8.4 % (3-12); MONOCYTE COUNT 0.6 K/uL (0-0.8); NEUTROPHIL (%) 76.2 % (45-76); NEUTROPHIL COUNT 5.8 K/uL (1.8-6.4); NRBC (%) 2.1 /100 WBC (0-0); PLATELET COUNT 313 K/uL (156-360); RBC DIS.WIDTH-CV 17.4 % (11.8-14.6); RBC DIS.WIDTH-SD 48.8 % (39-53); RED BLOOD COUNT 3.86 M/uL (4.00-5.50); WHITE BLOOD COUNT 7.6 K/uL (4.1-10.2)
[2017-10-29 07:51] LABS: ALBUMIN 2.4 G/DL (3.2-4.8); ALKALINE PHOSPHATASE 134 IU/L (3-129); ALT (GPT) 40 IU/L (3-49); AST (GOT) 93 IU/L (2-34); CHLORIDE 102 MEQ/L (99-109); CREATININE 0.9 MG/DL (0.6-1.3); GFR ESTIMATE (CALCULATED) > 59 mL/min/ (58.99-99999); GLUCOSE 111 mg/dL (70-99); POTASSIUM 3.2 MEQ/L (3.7-5.4); SODIUM 147 MEQ/L (136-147); TOTAL BILIRUBIN 5.3 MG/DL (0.0-1.0); TOTAL PROTEIN 6.6 G/DL (6.4-8.3); UREA NITROGEN (BUN) 16 mg/dL (9-23)
[2017-10-30 06:21] LABS: BASOPHIL (%) 0.7 % (0-1); BASOPHIL COUNT 0.1 K/uL (0-0.1); EOSINOPHIL (%) 0.7 % (0-5); EOSINOPHIL COUNT 0.1 K/uL (0-0.3); HEMATOCRIT 32.4 % (38.0-50.0); IMMATURE GRANULOCYTE (%) 0.6 % (0.0-0.7); LYMPHOCYTE (%) 12.7 % (15-42); MCH 28.1 PG (29.0-34.0); MCV 82.9 FL (86-99); MONOCYTE (%) 7.6 % (3-12); MONOCYTE COUNT 0.6 K/uL (0-0.8); NEUTROPHIL (%) 77.7 % (45-76); NEUTROPHIL COUNT 6.3 K/uL (1.8-6.4); NRBC (%) 3.8 /100 WBC (0-0); PLATELET COUNT 283 K/uL (156-360); RBC DIS.WIDTH-CV 18.3 % (11.8-14.6); RBC DIS.WIDTH-SD 51.4 % (39-53); RED BLOOD COUNT 3.91 M/uL (4.00-5.50); WHITE BLOOD COUNT 8.1 K/uL (4.1-10.2)
[2017-10-30 06:40] LABS: INTER. NORMALIZED RATIO 1.6
[2017-10-30 06:45] LABS: ALBUMIN 2.2 G/DL (3.2-4.8); ALKALINE PHOSPHATASE 117 IU/L (3-129); ALT (GPT) 34 IU/L (3-49); AST (GOT) 72 IU/L (2-34); CHLORIDE 105 MEQ/L (99-109); CREATININE 0.8 MG/DL (0.6-1.3); DIRECT BILIRUBIN 2.8 mg/dL (0.0-0.3); GFR ESTIMATE (CALCULATED) > 59 mL/min/ (58.99-99999); GLUCOSE 91 mg/dL (70-99); POTASSIUM 3.7 MEQ/L (3.7-5.4); SODIUM 149 MEQ/L (136-147); TOTAL PROTEIN 6.5 G/DL (6.4-8.3); UREA NITROGEN (BUN) 17 mg/dL (9-23)
[2017-10-30 08:11] VITALS: BP 113/56
[2017-10-30 16:04] VITALS: BP 112/55
[2017-10-30 20:06] LABS: BASOPHIL (%) 0.6 % (0-1); EOSINOPHIL (%) 0.9 % (0-5); EOSINOPHIL COUNT 0.1 K/uL (0-0.3); HEMATOCRIT 32.5 % (38.0-50.0); HEMOGLOBIN 10.8 G/DL (12.5-16.6); IMMATURE GRANULOCYTE (%) 0.6 % (0.0-0.7); LYMPHOCYTE (%) 16.9 % (15-42); LYMPHOCYTE COUNT 1.2 K/uL (1.0-2.8); MCH 27.8 PG (29.0-34.0); MCHC 33.2 G/DL (30.0-36.0); MCV 83.8 FL (86-99); MONOCYTE (%) 8.4 % (3-12); MONOCYTE COUNT 0.6 K/uL (0-0.8); NEUTROPHIL (%) 72.6 % (45-76); NRBC (%) 4.7 /100 WBC (0-0); PLATELET COUNT 311 K/uL (156-360); RBC DIS.WIDTH-CV 18.4 % (11.8-14.6); RBC DIS.WIDTH-SD 52.3 % (39-53); RED BLOOD COUNT 3.88 M/uL (4.00-5.50); WHITE BLOOD COUNT 6.9 K/uL (4.1-10.2)
[2017-10-30 20:44] LABS: ALBUMIN 2.4 G/DL (3.2-4.8); ALKALINE PHOSPHATASE 119 IU/L (3-129); ALT (GPT) 31 IU/L (3-49); AST (GOT) 63 IU/L (2-34); CHLORIDE 105 MEQ/L (99-109); CREATININE 0.8 MG/DL (0.6-1.3); GFR ESTIMATE (CALCULATED) > 59 mL/min/ (58.99-99999); POTASSIUM 3.4 MEQ/L (3.7-5.4); SODIUM 147 MEQ/L (136-147); TOTAL BILIRUBIN 4.8 MG/DL (0.0-1.0); TOTAL PROTEIN 6.8 G/DL (6.4-8.3); UREA NITROGEN (BUN) 18 mg/dL (9-23)
[2017-10-30 20:45] LABS: GLUCOSE 115 mg/dL (70-99)
[2017-10-30 21:46] LABS: APPEARANCE SL.HAZY ((CLEAR)); BILIRUBIN MODERATE; BLOOD SMALL; COLOR AMBER ((YELLOW)); GLUCOSE (STRIP) NEGATIVE; KETONES NEGATIVE; LEUKOCYTES NEGATIVE; NITRITE NEGATIVE; PROTEIN (STRIP) >=500; SPECIFIC GRAVITY 1.027 (1.000-1.030)
[2017-10-30 21:51] LABS: ICTOTEST ND
[2017-10-30 21:55] LABS: BACTERIA RARE /HPF; EPITHELIAL CELLS RARE /HPF; MUCUS TRACE /LPF; RED BLOOD CELLS 0-5 /HPF (0-5)
[2017-10-30 23:32] VITALS: BP 102/62
[2017-10-31 05:53] LABS: BASOPHIL (%) 0.7 % (0-1); BASOPHIL COUNT 0.1 K/uL (0-0.1); EOSINOPHIL (%) 0.4 % (0-5); IMMATURE GRANULOCYTE (%) 0.6 % (0.0-0.7); LYMPHOCYTE (%) 18.1 % (15-42); LYMPHOCYTE COUNT 1.2 K/uL (1.0-2.8); MCH 27.6 PG (29.0-34.0); MCHC 33.3 G/DL (30.0-36.0); MCV 82.9 FL (86-99); MONOCYTE COUNT 0.5 K/uL (0-0.8); NEUTROPHIL (%) 73.2 % (45-76); NEUTROPHIL COUNT 4.9 K/uL (1.8-6.4); NRBC (%) 4.3 /100 WBC (0-0); PLATELET COUNT 311 K/uL (156-360); RBC DIS.WIDTH-CV 18.1 % (11.8-14.6); RBC DIS.WIDTH-SD 50.4 % (39-53); RED BLOOD COUNT 3.98 M/uL (4.00-5.50); WHITE BLOOD COUNT 6.7 K/uL (4.1-10.2)
[2017-10-31 06:19] LABS: ALBUMIN 2.2 G/DL (3.2-4.8); ALKALINE PHOSPHATASE 111 IU/L (3-129); ALT (GPT) 35 IU/L (3-49); AST (GOT) 77 IU/L (2-34); CHLORIDE 105 MEQ/L (99-109); CREATININE 0.8 MG/DL (0.6-1.3); DIRECT BILIRUBIN 2.5 mg/dL (0.0-0.3); GFR ESTIMATE (CALCULATED) > 59 mL/min/ (58.99-99999); GLUCOSE 106 mg/dL (70-99); SODIUM 146 MEQ/L (136-147); TOTAL PROTEIN 6.8 G/DL (6.4-8.3); UREA NITROGEN (BUN) 17 mg/dL (9-23)
[2017-10-31 06:30] LABS: POTASSIUM 4.2 MEQ/L (3.7-5.4)
[2017-10-31 07:44] VITALS: BP 103/70
[2017-10-31 16:22] VITALS: BP 127/60
[2017-11-01 00:22] VITALS: BP 109/68
[2017-11-01 07:17] VITALS: BP 100/62
[2017-11-01 15:19] VITALS: BP 105/53
[2017-11-02 01:27] VITALS: BP 106/66
[2017-11-02 06:04] LABS: BASOPHIL (%) 0.7 % (0-1); EOSINOPHIL COUNT 0.1 K/uL (0-0.3); HEMATOCRIT 31.2 % (38.0-50.0); HEMOGLOBIN 10.4 G/DL (12.5-16.6); IMMATURE GRANULOCYTE (%) 0.7 % (0.0-0.7); LYMPHOCYTE (%) 18.7 % (15-42); LYMPHOCYTE COUNT 1.1 K/uL (1.0-2.8); MCH 27.7 PG (29.0-34.0); MCHC 33.3 G/DL (30.0-36.0); MCV 83.2 FL (86-99); MONOCYTE COUNT 0.5 K/uL (0-0.8); NEUTROPHIL (%) 70.9 % (45-76); NEUTROPHIL COUNT 4.2 K/uL (1.8-6.4); NRBC (%) 4.9 /100 WBC (0-0); PLATELET COUNT 306 K/uL (156-360); RBC DIS.WIDTH-SD 53.2 % (39-53); RED BLOOD COUNT 3.75 M/uL (4.00-5.50); WHITE BLOOD COUNT 5.9 K/uL (4.1-10.2)
[2017-11-02 06:36] LABS: ALBUMIN 2.3 G/DL (3.2-4.8); ALKALINE PHOSPHATASE 123 IU/L (3-129); ALT (GPT) 29 IU/L (3-49); AST (GOT) 53 IU/L (2-34); CHLORIDE 104 MEQ/L (99-109); CREATININE 0.8 MG/DL (0.6-1.3); GFR ESTIMATE (CALCULATED) > 59 mL/min/ (58.99-99999); GLUCOSE 110 mg/dL (70-99); SODIUM 146 MEQ/L (136-147); TOTAL BILIRUBIN 4.4 MG/DL (0.0-1.0); UREA NITROGEN (BUN) 16 mg/dL (9-23)
[2017-11-02 06:39] LABS: POTASSIUM 3.3 MEQ/L (3.7-5.4)
[2017-11-02 08:39] VITALS: BP 124/65
[2017-11-02 15:41] VITALS: BP 90/64
[2017-11-03 00:13] VITALS: BP 96/63
[2017-11-03 06:18] LABS: HEMATOCRIT 31.3 % (38.0-50.0); HEMOGLOBIN 10.6 G/DL (12.5-16.6); MCH 28.4 PG (29.0-34.0); MCHC 33.9 G/DL (30.0-36.0); MCV 83.9 FL (86-99); NRBC (%) 3.6 /100 WBC (0-0); PLATELET COUNT 298 K/uL (156-360); RBC DIS.WIDTH-CV 19.3 % (11.8-14.6); RBC DIS.WIDTH-SD 55.1 % (39-53); RED BLOOD COUNT 3.73 M/uL (4.00-5.50); WHITE BLOOD COUNT 5.6 K/uL (4.1-10.2)
[2017-11-03 06:31] LABS: ALBUMIN 2.3 G/DL (3.2-4.8); ALKALINE PHOSPHATASE 103 IU/L (3-129); ALT (GPT) 29 IU/L (3-49); AST (GOT) 52 IU/L (2-34); CHLORIDE 103 MEQ/L (99-109); CREATININE 0.8 MG/DL (0.6-1.3); GFR ESTIMATE (CALCULATED) > 59 mL/min/ (58.99-99999); GLUCOSE 103 mg/dL (70-99); POTASSIUM 3.6 MEQ/L (3.7-5.4); SODIUM 145 MEQ/L (136-147); TOTAL BILIRUBIN 4.4 MG/DL (0.0-1.0); TOTAL PROTEIN 6.5 G/DL (6.4-8.3); UREA NITROGEN (BUN) 12 mg/dL (9-23)
[2017-11-03 06:53] LABS: ABS NEUTROPHIL COUNT 4.6; ANISOCYTOSIS 3+; BAND NEUTROPHILS 1.8 % (0-8.0); BASOPHILS 1.8 %; EOSINOPHIL ABS CT 0; LYMPHOCYTES 7.1 % (15.0-45.0); MACROCYTES 1+; METAMYELOCYTES 3.5 %; MONOCYTES 3.5 % (0-9.0); MYELOCYTES 1.8 %; NUCLEATED RBC'S 2.7; PLAT.SUFFICIENCY ADEQUATE; POLYCHROMASIA 2+; SEG.NEUTROPHILS 80.5 % (46.0-76.0); SMUDGE CELLS 17.7; TARGET CELLS 3+
[2017-11-03 07:04] VITALS: BP 101/63
[2017-11-03 15:40] VITALS: BP 100/68
[2017-11-04 00:05] VITALS: BP 98/58
[2017-11-04 07:10] VITALS: BP 102/72
[2017-11-04 09:18] LABS: CHLORIDE 106 MEQ/L (99-109); CREATININE 0.8 MG/DL (0.6-1.3); GFR ESTIMATE (CALCULATED) > 59 mL/min/ (58.99-99999); GLUCOSE 108 mg/dL (70-99); POTASSIUM 3.9 MEQ/L (3.7-5.4); SODIUM 141 MEQ/L (136-147); UREA NITROGEN (BUN) 13 mg/dL (9-23)
[2017-11-04 15:50] VITALS: BP 104/58
[2017-11-05 01:15] VITALS: BP 131/75
[2017-11-05 07:10] VITALS: BP 99/66
[2017-11-05 11:00] VITALS: BP 98/57
[2017-11-05 16:00] VITALS: BP 107/62
[2017-11-06 00:12] VITALS: BP 101/71
[2017-11-06 05:45] LABS: HEMATOCRIT 32.4 % (38.0-50.0); HEMOGLOBIN 10.8 G/DL (12.5-16.6); MCH 27.6 PG (29.0-34.0); MCHC 33.3 G/DL (30.0-36.0); MCV 82.9 FL (86-99); NRBC (%) 1.4 /100 WBC (0-0); PLATELET COUNT 294 K/uL (156-360); RBC DIS.WIDTH-CV 18.3 % (11.8-14.6); RBC DIS.WIDTH-SD 53.2 % (39-53); RED BLOOD COUNT 3.91 M/uL (4.00-5.50); WHITE BLOOD COUNT 4.2 K/uL (4.1-10.2)
[2017-11-06 06:05] LABS: ALBUMIN 2.2 G/DL (3.2-4.8); ALKALINE PHOSPHATASE 125 IU/L (3-129); ALT (GPT) 28 IU/L (3-49); AST (GOT) 50 IU/L (2-34); CHLORIDE 105 MEQ/L (99-109); CREATININE 0.8 MG/DL (0.6-1.3); GFR ESTIMATE (CALCULATED) > 59 mL/min/ (58.99-99999); GLUCOSE 96 mg/dL (70-99); POTASSIUM 3.5 MEQ/L (3.7-5.4); SODIUM 142 MEQ/L (136-147); TOTAL PROTEIN 6.5 G/DL (6.4-8.3); UREA NITROGEN (BUN) 10 mg/dL (9-23)
[2017-11-06 06:55] VITALS: BP 106/72
[2017-11-06 15:15] VITALS: BP 106/68
[2017-11-06 23:50] VITALS: BP 132/87
[2017-11-07 07:10] VITALS: BP 109/67
[2017-11-07] MEDS ORDERED: DIGOXIN125 MCG PO (12:41)
[2017-11-07] MEDS ORDERED: LISINOPRIL2.5 MG PO (12:41)
[2017-11-07] MEDS ORDERED: FUROSEMIDE20 MG PO (12:43)
[2017-11-08] MEDS ORDERED: LANOXIN125 MCG PO (17:23)
[2017-11-08] MEDS ORDERED: ZESTRIL2.5 MG PO (17:24)
[2017-11-08] MEDS ORDERED: LASIX20 MG PO (17:26)
[2017-11-08] MEDS ORDERED: NORCO 5/3251 TABLET PO (17:28)
[2017-11-08] MEDS ORDERED: DULCOLAX10 MG PR (17:28)
[2017-11-08] MEDS ORDERED: MILK OF MAGN PO (17:29)
[2017-11-08] MEDS ORDERED: MIRALAX17 GM PO (17:29)
[2017-11-08] MEDS ORDERED: VENTOLIN HFA18 GM IH (17:30)
== END 2017-11-07 16:18 | DRG 871 ==
LOC: EME 10:32 → EDOF 14:41 → 4WEST 14:41 → 5EAST 14:41 → ENRESERV 14:47 → 4EAST 19:14 → ENRESERV 10-21 13:13 → 4WEST 10-21 16:38 → ENRESERV 10-26 09:05 → 5EAST 10-26 11:21
PROVIDERS: Emergency Medicine; Hospitalist; Internal Medicine; Internal Medicine Cardiovascular Disease; Internal Medicine Critical Care Medicine; Internal Medicine Gastroenterology; Specialist; Surgery
PROC: 0HDLXZZ Extraction of Left Lower Leg Skin, External Approach (ICD-10-PCS; principal; 2017-10-29)
DX: A41.9 Sepsis, unspecified organism (principal); J18.9 Pneumonia, unspecified organism; Y95 Nosocomial condition; N17.9 Acute kidney failure, unspecified; D65 Disseminated intravascular coagulation [defibrination syndrome]; I11.0 Hypertensive heart disease with heart failure; I50.43 Acute on chronic combined systolic (congestive) and diastolic (congestive) heart failure; I95.89 Other hypotension; G93.40 Encephalopathy, unspecified; E87.2 Acidosis; E87.1 Hypo-osmolality and hyponatremia; N39.0 Urinary tract infection, site not specified; I87.2 Venous insufficiency (chronic) (peripheral); I87.8 Other specified disorders of veins; L97.929 Non-pressure chronic ulcer of unspecified part of left lower leg with unspecified severity; L03.116 Cellulitis of left lower limb; I89.0 Lymphedema, not elsewhere classified; I27.20 Pulmonary hypertension, unspecified; I42.2 Other hypertrophic cardiomyopathy; I48.2 Chronic atrial fibrillation; I08.1 Rheumatic disorders of both mitral and tricuspid valves; D50.9 Iron deficiency anemia, unspecified; E66.01 Morbid (severe) obesity due to excess calories; E78.5 Hyperlipidemia, unspecified; E87.0 Hyperosmolality and hypernatremia; E87.6 Hypokalemia; G47.00 Insomnia, unspecified; R32 Unspecified urinary incontinence; K59.00 Constipation, unspecified; K76.0 Fatty (change of) liver, not elsewhere classified; K76.1 Chronic passive congestion of liver; R09.02 Hypoxemia; Z68.42 Body mass index [BMI] 45.0-49.9, adult; Z79.01 Long term (current) use of anticoagulants; Z87.891 Personal history of nicotine dependence
CPT/HCPCS: 36600; 71045; 74150; 80048; 80048 91; 80053; 80076; 80162; 81003; 82140; 82248; 82803; 82948; 83010 90; 83540; 83605; 83735; 83880; 84100; 84132 91; 84466; 84484; 85025; 85025 91; 85027; 85610; 85730; 87040; 87086; 87449; 87641; 92526 GN; 92610 GN; 93005; 94640; 94640 76; 94799; 97530 GO; 97530 GP; 99202; 99281; 99285; A6242; J0692; J1940; J2060; J3370; J3430; J3475; J3480; J7030; J7040; J7050

== ENCOUNTER 2017-11-08 16:04 | Inpatient (IN) | payer OTHER ==
[~2017-11-08] VITALS: Ht 175.3 cm; Wt 135.7 kg
[~2017-11-08 16:04] MED LIST changes: +CEPHALEXIN500 MG PO; +DIGOXIN125 MCG PO; +ELIQUIS5 MG PO; +FLOVENT 11120 INHALA IH; +FUROSEMIDE20 MG PO; +LISINOPRIL2.5 MG PO; +PROTONIX40 MG PO
[2017-11-08 17:11] LABS: BASOPHIL (%) 0.6 % (0-1); EOSINOPHIL (%) 1.1 % (0-5); EOSINOPHIL COUNT 0.1 K/uL (0-0.3); HEMATOCRIT 33.9 % (38.0-50.0); HEMOGLOBIN 11.5 G/DL (12.5-16.6); IMMATURE GRANULOCYTE (%) 0.6 % (0.0-0.7); LYMPHOCYTE (%) 22.2 % (15-42); LYMPHOCYTE COUNT 1.2 K/uL (1.0-2.8); MCH 27.8 PG (29.0-34.0); MCHC 33.9 G/DL (30.0-36.0); MCV 82.1 FL (86-99); MONOCYTE (%) 11.4 % (3-12); MONOCYTE COUNT 0.6 K/uL (0-0.8); NEUTROPHIL (%) 64.1 % (45-76); NEUTROPHIL COUNT 3.4 K/uL (1.8-6.4); NRBC (%) 0.8 /100 WBC (0-0); PLATELET COUNT 324 K/uL (156-360); RBC DIS.WIDTH-SD 51.9 % (39-53); RED BLOOD COUNT 4.13 M/uL (4.00-5.50); WHITE BLOOD COUNT 5.3 K/uL (4.1-10.2)
[2017-11-08 17:16] LABS: CARBON DIOXIDE (BICARBONATE) 32.6 MEQ/L (20-31)
[2017-11-08 17:17] LABS: INTER. NORMALIZED RATIO 2.1
[2017-11-08 17:21] LABS: ALBUMIN 2.5 g/dL (3.2-4.8)
[2017-11-08 17:22] LABS: CHLORIDE 101 mEq/L (99-109); SODIUM 140 mEq/L (136-147)
[2017-11-08] MEDS ORDERED: LANOXIN125 MCG PO (17:23)
[2017-11-08 17:24] LABS: TOTAL PROTEIN 7.9 g/dL (6.4-8.3)
[2017-11-08] MEDS ORDERED: ZESTRIL2.5 MG PO (17:24)
[2017-11-08 17:26] LABS: TOTAL BILIRUBIN 4.4 mg/dL (0.0-1.0)
[2017-11-08] MEDS ORDERED: LASIX20 MG PO (17:26)
[2017-11-08 17:27] LABS: ALKALINE PHOSPHATASE 151 IU/L (3-129)
[2017-11-08 17:28] LABS: CREATININE 0.9 mg/dL (0.6-1.3); GFR ESTIMATE (CALCULATED) > 59 mL/min/ (58.99-99999)
[2017-11-08] MEDS ORDERED: DULCOLAX10 MG PR (17:28)
[2017-11-08] MEDS ORDERED: NORCO 5/3251 TABLET PO (17:28)
[2017-11-08 17:29] LABS: AST (GOT) 57 IU/L (2-34); UREA NITROGEN (BUN) 10 mg/dL (9-23)
[2017-11-08] MEDS ORDERED: MIRALAX17 GM PO (17:29)
[2017-11-08] MEDS ORDERED: MILK OF MAGN PO (17:29)
[2017-11-08] MEDS ORDERED: VENTOLIN HFA18 GM IH (17:30)
[2017-11-08 17:31] LABS: ALT (GPT) 33 IU/L (3-49)
[2017-11-08 17:33] LABS: TROP-I INTERPRETATION NEGATIVE; TROPONIN-I 0.27 ng/mL (0.0-0.30)
[2017-11-08 17:35] LABS: GLUCOSE 95 mg/dL (70-99); POTASSIUM 3.7 mEq/L (3.7-5.4)
[2017-11-08 18:41] LABS: APPEARANCE CLEAR ((CLEAR)); BILIRUBIN SMALL; BLOOD NEGATIVE; COLOR AMBER ((YELLOW)); GLUCOSE (STRIP) NEGATIVE; KETONES NEGATIVE; LEUKOCYTES NEGATIVE; NITRITE NEGATIVE; PROTEIN (STRIP) 30; SPECIFIC GRAVITY 1.023 (1.000-1.030); UCUL ADDED? NO
[2017-11-08 19:38] LABS: DIGOXIN 0.7 ng/mL (0.8-2.0)
[2017-11-09] VITALS (7 sets, daily range): BP systolic 98–110; BP diastolic 60–72
[2017-11-09 05:58] LABS: BASOPHIL (%) 0.9 % (0-1); EOSINOPHIL (%) 1.3 % (0-5); EOSINOPHIL COUNT 0.1 K/uL (0-0.3); HEMOGLOBIN 10.2 G/DL (12.5-16.6); IMMATURE GRANULOCYTE (%) 0.4 % (0.0-0.7); LYMPHOCYTE (%) 25.4 % (15-42); LYMPHOCYTE COUNT 1.1 K/uL (1.0-2.8); MCH 27.2 PG (29.0-34.0); MCHC 32.9 G/DL (30.0-36.0); MCV 82.7 FL (86-99); MONOCYTE (%) 11.9 % (3-12); MONOCYTE COUNT 0.5 K/uL (0-0.8); NEUTROPHIL (%) 60.1 % (45-76); NEUTROPHIL COUNT 2.7 K/uL (1.8-6.4); NRBC (%) 0.4 /100 WBC (0-0); PLATELET COUNT 312 K/uL (156-360); RBC DIS.WIDTH-CV 17.9 % (11.8-14.6); RBC DIS.WIDTH-SD 52.4 % (39-53); RED BLOOD COUNT 3.75 M/uL (4.00-5.50); WHITE BLOOD COUNT 4.5 K/uL (4.1-10.2)
[2017-11-09 06:36] LABS: CHLORIDE 100 MEQ/L (99-109); CREATININE 0.8 MG/DL (0.6-1.3); GFR ESTIMATE (CALCULATED) > 59 mL/min/ (58.99-99999); GLUCOSE 97 mg/dL (70-99); POTASSIUM 3.6 MEQ/L (3.7-5.4); SODIUM 137 MEQ/L (136-147); UREA NITROGEN (BUN) 10 mg/dL (9-23)
[2017-11-09 10:42] LABS: TROP-I INTERPRETATION NEGATIVE; TROPONIN-I 0.28 ng/mL (0.0-0.30)
[2017-11-10 04:06] VITALS: BP 110/68
[2017-11-10 07:23] VITALS: BP 105/70
[2017-11-10 08:58] LABS: HEMATOCRIT 29.1 % (38.0-50.0); HEMOGLOBIN 9.8 G/DL (12.5-16.6); MCH 27.5 PG (29.0-34.0); MCHC 33.7 G/DL (30.0-36.0); MCV 81.7 FL (86-99); PLATELET COUNT 293 K/uL (156-360); RBC DIS.WIDTH-CV 17.6 % (11.8-14.6); RBC DIS.WIDTH-SD 51.3 % (39-53); RED BLOOD COUNT 3.56 M/uL (4.00-5.50); WHITE BLOOD COUNT 4.4 K/uL (4.1-10.2)
[2017-11-10 09:22] LABS: CHLORIDE 105 MEQ/L (99-109); CREATININE 0.9 MG/DL (0.6-1.3); GFR ESTIMATE (CALCULATED) > 59 mL/min/ (58.99-99999); GLUCOSE 95 mg/dL (70-99); POTASSIUM 3.6 MEQ/L (3.7-5.4); SODIUM 140 MEQ/L (136-147); UREA NITROGEN (BUN) 10 mg/dL (9-23)
[2017-11-10 11:50] VITALS: BP 112/68
[2017-11-10 15:54] VITALS: BP 110/66
[2017-11-10 23:17] VITALS: BP 100/55
[2017-11-10 23:43] VITALS: BP 118/69
[2017-11-11] VITALS (7 sets, daily range): BP systolic 96–108; BP diastolic 56–74
[2017-11-11 06:12] LABS: HEMATOCRIT 30.4 % (38.0-50.0); HEMOGLOBIN 10.2 G/DL (12.5-16.6); MCH 27.6 PG (29.0-34.0); MCHC 33.6 G/DL (30.0-36.0); MCV 82.2 FL (86-99); NRBC (%) 0.5 /100 WBC (0-0); PLATELET COUNT 300 K/uL (156-360); RBC DIS.WIDTH-CV 17.7 % (11.8-14.6); WHITE BLOOD COUNT 4.4 K/uL (4.1-10.2)
[2017-11-11 06:29] LABS: CHLORIDE 104 MEQ/L (99-109); CREATININE 0.9 MG/DL (0.6-1.3); GFR ESTIMATE (CALCULATED) > 59 mL/min/ (58.99-99999); GLUCOSE 87 mg/dL (70-99); POTASSIUM 3.7 MEQ/L (3.7-5.4); SODIUM 139 MEQ/L (136-147); UREA NITROGEN (BUN) 9 mg/dL (9-23)
[2017-11-12 03:04] VITALS: BP 99/71
[2017-11-12 06:10] LABS: BASOPHIL (%) 1.2 % (0-1); BASOPHIL COUNT 0.1 K/uL (0-0.1); EOSINOPHIL (%) 1.2 % (0-5); EOSINOPHIL COUNT 0.1 K/uL (0-0.3); HEMATOCRIT 29.8 % (38.0-50.0); HEMOGLOBIN 10.2 G/DL (12.5-16.6); IMMATURE GRANULOCYTE (%) 0.2 % (0.0-0.7); LYMPHOCYTE (%) 26.5 % (15-42); LYMPHOCYTE COUNT 1.1 K/uL (1.0-2.8); MCH 27.9 PG (29.0-34.0); MCHC 34.2 G/DL (30.0-36.0); MCV 81.4 FL (86-99); MONOCYTE (%) 11.6 % (3-12); MONOCYTE COUNT 0.5 K/uL (0-0.8); NEUTROPHIL (%) 59.3 % (45-76); NEUTROPHIL COUNT 2.5 K/uL (1.8-6.4); PLATELET COUNT 300 K/uL (156-360); RBC DIS.WIDTH-CV 17.5 % (11.8-14.6); RBC DIS.WIDTH-SD 50.7 % (39-53); RED BLOOD COUNT 3.66 M/uL (4.00-5.50); WHITE BLOOD COUNT 4.2 K/uL (4.1-10.2)
[2017-11-12 06:34] LABS: CHLORIDE 100 MEQ/L (99-109); CREATININE 0.8 MG/DL (0.6-1.3); GFR ESTIMATE (CALCULATED) > 59 mL/min/ (58.99-99999); GLUCOSE 86 mg/dL (70-99); POTASSIUM 3.4 MEQ/L (3.7-5.4); SODIUM 137 MEQ/L (136-147); UREA NITROGEN (BUN) 8 mg/dL (9-23)
[2017-11-12 06:50] VITALS: BP 104/62
[2017-11-12 15:31] VITALS: BP 107/77
[2017-11-12 19:31] VITALS: BP 113/70
[2017-11-12 23:51] VITALS: BP 114/69
[2017-11-13 04:00] VITALS: BP 104/68
[2017-11-13 05:38] LABS: BASOPHIL (%) 0.9 % (0-1); EOSINOPHIL (%) 1.3 % (0-5); EOSINOPHIL COUNT 0.1 K/uL (0-0.3); HEMATOCRIT 33.1 % (38.0-50.0); IMMATURE GRANULOCYTE (%) 0.2 % (0.0-0.7); LYMPHOCYTE (%) 24.7 % (15-42); LYMPHOCYTE COUNT 1.2 K/uL (1.0-2.8); MCH 27.4 PG (29.0-34.0); MCHC 33.2 G/DL (30.0-36.0); MCV 82.3 FL (86-99); MONOCYTE (%) 12.2 % (3-12); MONOCYTE COUNT 0.6 K/uL (0-0.8); NEUTROPHIL (%) 60.7 % (45-76); NEUTROPHIL COUNT 2.8 K/uL (1.8-6.4); NRBC (%) 0.4 /100 WBC (0-0); PLATELET COUNT 329 K/uL (156-360); RBC DIS.WIDTH-CV 17.4 % (11.8-14.6); RBC DIS.WIDTH-SD 51.5 % (39-53); RED BLOOD COUNT 4.02 M/uL (4.00-5.50); WHITE BLOOD COUNT 4.7 K/uL (4.1-10.2)
[2017-11-13 06:06] LABS: CHLORIDE 100 MEQ/L (99-109); CREATININE 0.8 MG/DL (0.6-1.3); GFR ESTIMATE (CALCULATED) > 59 mL/min/ (58.99-99999); GLUCOSE 97 mg/dL (70-99); MAGNESIUM 1.7 mg/dl (1.3-2.7); PHOSPHORUS 3.2 mg/dL (2.5-4.9); POTASSIUM 3.7 MEQ/L (3.7-5.4); SODIUM 136 MEQ/L (136-147); UREA NITROGEN (BUN) 8 mg/dL (9-23)
[2017-11-13 06:09] LABS: TROP-I INTERPRETATION NEGATIVE; TROPONIN-I 0.23 ng/mL (0.0-0.30)
[2017-11-13 07:20] VITALS: BP 107/65
[2017-11-13 10:55] VITALS: BP 115/81
[2017-11-13 16:10] VITALS: BP 98/69
[2017-11-13 21:02] VITALS: BP 103/68
[2017-11-14] VITALS (7 sets, daily range): BP systolic 94–107; BP diastolic 53–79
[2017-11-14 09:18] LABS: HEMATOCRIT 31.1 % (38.0-50.0); HEMOGLOBIN 10.6 G/DL (12.5-16.6); MCH 27.7 PG (29.0-34.0); MCHC 34.1 G/DL (30.0-36.0); MCV 81.4 FL (86-99); NRBC (%) 0.5 /100 WBC (0-0); PLATELET COUNT 321 K/uL (156-360); RBC DIS.WIDTH-CV 17.2 % (11.8-14.6); RBC DIS.WIDTH-SD 50.3 % (39-53); RED BLOOD COUNT 3.82 M/uL (4.00-5.50); WHITE BLOOD COUNT 4.2 K/uL (4.1-10.2)
[2017-11-15 00:36] VITALS: BP 101/67
[2017-11-15 04:09] VITALS: BP 100/67
[2017-11-15 06:40] LABS: BASOPHIL (%) 1.3 % (0-1); BASOPHIL COUNT 0.1 K/uL (0-0.1); EOSINOPHIL (%) 1.8 % (0-5); EOSINOPHIL COUNT 0.1 K/uL (0-0.3); HEMATOCRIT 31.3 % (38.0-50.0); HEMOGLOBIN 10.5 G/DL (12.5-16.6); IMMATURE GRANULOCYTE (%) 0.3 % (0.0-0.7); LYMPHOCYTE (%) 30.7 % (15-42); LYMPHOCYTE COUNT 1.2 K/uL (1.0-2.8); MCH 27.1 PG (29.0-34.0); MCHC 33.5 G/DL (30.0-36.0); MCV 80.7 FL (86-99); MONOCYTE (%) 12.1 % (3-12); MONOCYTE COUNT 0.5 K/uL (0-0.8); NEUTROPHIL (%) 53.8 % (45-76); NEUTROPHIL COUNT 2.2 K/uL (1.8-6.4); PLATELET COUNT 319 K/uL (156-360); RBC DIS.WIDTH-SD 49.1 % (39-53); RED BLOOD COUNT 3.88 M/uL (4.00-5.50)
[2017-11-15 06:59] LABS: CHLORIDE 98 MEQ/L (99-109); CREATININE 0.7 MG/DL (0.6-1.3); GFR ESTIMATE (CALCULATED) > 59 mL/min/ (58.99-99999); GLUCOSE 87 mg/dL (70-99); POTASSIUM 3.5 MEQ/L (3.7-5.4); SODIUM 134 MEQ/L (136-147); UREA NITROGEN (BUN) 8 mg/dL (9-23)
[2017-11-15 07:21] VITALS: BP 110/76
[2017-11-15 11:21] VITALS: BP 110/60
[2017-11-15] MEDS ORDERED: AMOX TR-K CLV1 EAC3 PO (12:42)
[2017-11-15] MEDS ORDERED: CARVEDILOL3.125 MG PO (12:42)
[2017-11-15] MEDS ORDERED: FUROSEMIDE40 MG PO (12:42)
== END 2017-11-15 16:10 | disposition home health service (06) | DRG 193 ==
LOC: EME 16:04 → 5EAST 21:36 → EDOF 21:36 → ENRESERV 21:41 → 5EAST 23:53
PROVIDERS: Emergency Medicine; Hospitalist; Internal Medicine; Internal Medicine Pulmonary Disease; Physician Assistant; Physician Assistant Medical; Student in an Organized Health Care Education/Training Program
DX: J18.9 Pneumonia, unspecified organism (principal); Y95 Nosocomial condition; I11.0 Hypertensive heart disease with heart failure; I50.33 Acute on chronic diastolic (congestive) heart failure; I42.2 Other hypertrophic cardiomyopathy; I42.5 Other restrictive cardiomyopathy; I27.20 Pulmonary hypertension, unspecified; I08.3 Combined rheumatic disorders of mitral, aortic and tricuspid valves; I48.91 Unspecified atrial fibrillation; I95.9 Hypotension, unspecified; R55 Syncope and collapse; I48.92 Unspecified atrial flutter; S80.822A Blister (nonthermal), left lower leg, initial encounter; L97.821 Non-pressure chronic ulcer of other part of left lower leg limited to breakdown of skin; L03.116 Cellulitis of left lower limb; I87.2 Venous insufficiency (chronic) (peripheral); I89.0 Lymphedema, not elsewhere classified; R04.2 Hemoptysis; T45.515A Adverse effect of anticoagulants, initial encounter; E66.01 Morbid (severe) obesity due to excess calories; Z68.42 Body mass index [BMI] 45.0-49.9, adult; D64.9 Anemia, unspecified; E78.5 Hyperlipidemia, unspecified; Z79.01 Long term (current) use of anticoagulants; Z87.01 Personal history of pneumonia (recurrent); Z87.891 Personal history of nicotine dependence
CPT/HCPCS: 70450; 71045; 80048; 80053; 80162; 80202; 81003; 82140; 82565; 82803; 83605; 83735; 83880; 84100; 84484; 85025; 85025 91; 85027; 85610; 87040; 87070; 87081; 87205; 87449; 87641; 93005; 93970; 94640; 94640 76; 94799; 95819; 97530 GO; 97530 GP; 99202; 99281; 99285; A6242; A6260; J1940; J2405; J2543; J3370; J7030; J7050